=== PATIENT | female | born 1960 | race American Indian/Alaskan Native ===

== ENCOUNTER 2018-06-16 07:06 | Outpatient (CLI) | payer BC ==
[2018-06-16 08:36] LABS: Blood Urea Nitrogen 21 mg/dL (7-17)
--- NOTE | 2018-06-16 15:42 | Cat Scan Report ---
FINAL REPORT EXAM: CT CHEST W CON HISTORY: WEIGHT LOSS TECHNIQUE: Standard enhanced CT of the chest at 2.5 mm axial increments. Coronal and sagittal recons truction was also obtained. Contrast: 100 ml Omnipaque 350 given IV PRIORS: None. FINDINGS: The lung parenchyma are expanded and clear with no evidence for parenchymal nodules, infiltrates, vas cular congestion, pleural effusion, or pneumothorax. There is no evidence for mediastinal, hilar, or axillary adenopathy. The esophagus is collapsed. Th e trachea is midline. Cardiovascular structures are within normal limits. Cardiac size and aorta are normal. Bony structures show no focal abnormalities. No evidence for bony fracture is seen. IMPRESSION: No acute abnormality identified in the chest. Negative exam.
--- NOTE | 2018-06-16 15:48 | Cat Scan Report ---
FINAL REPORT EXAM: CT ABDOMEN PELVIS W CON HISTORY: WEIGHT LOSS TECHNIQUE: Standard enhanced CT of the abdomen and pelvis. Coronal and sagittal reconstruction was a lso performed. Contrast: 100 mL Omnipaque 350 given IV. Readi-Cat given as oral. PRIORS: None. FINDINGS: Within the abdomen, the liver, spleen, pancreas, gallbladder, adrenal glands, and kidneys are unremar kable. No evidence for retroperitoneal or pelvic lymphadenopathy is seen. The bowel loops have seven l caliber. No soft tissue mass, fluid collection, inflammatory change, or free air is seen within the abdomen or pelvis. The appendix is not visualized. Moderate stool is present throughout the entire c olon. Within the pelvis, the bladder is unremarkable. The uterus is not visualized. No evidence for mass or lymphadenopathy is seen in the pelvis. Bony structures show no focal abnormalities. There is a remote unfused fracture involving the distal tip of the posterior spinous process of T11. Facet joint degenerative changes bilaterally at L4 throu gh S1 are noted. IMPRESSION: No acute intra-abdominal process noted.
== END 2018-06-16 07:07 | disposition home or self-care (01) ==
LOC: CT 07:06
PROVIDERS: ATTEND Family Medicine
DX: R63.4 Abnormal weight loss (principal)
CPT/HCPCS: 36415; 71260; 74177; 82565; 84520; Q9967

== ENCOUNTER 2019-06-03 19:47 | Emergency (ER) | payer BC ==
[2019-06-03 20:17] VITALS: BP 167/89
[2019-06-03] MEDS: SODIUM CHLORIDE 0.9% IRR 500 ML BOTTLE IR ONE (21:34)
[2019-06-03] MEDS ORDERED: SODIUM CHLORIDE IRRI 500 ML 500 ML IR ONE (21:34)
[2019-06-03] MEDS: IBUPROFEN 600 MG TAB PO ONE (21:53)
[2019-06-03] MEDS: LIDOCAINE-MPF (1%) 10 MG/1 ML VIAL 5 ML INFILTRATI ONE (21:53)
[2019-06-03] MEDS: TETANUS,DIPH,PERTUSS(ACELL) VACCINE 0.5 ML SYRINGE IM ONE (21:53)
--- NOTE | 2019-06-03 22:58 | Emergency Department Report ---
- General Chief Complaint: Wound/Laceration Stated Complaint: LEFT PINKY FINGER LACERATION Source: patient Mode of arrival: Ambulatory Limitations: No Limitations - History of Present Illness Initial Comments: Patient is a 58-year-old -[place]ong[place] female with a history of hypertension and jss-wewgbob-ltuuyczdn diabetes who presents to the ED with complaint of acute onset persistent painful bleeding left small finger laceration after she accidentally cut her left small finger on the palmar side while cutting a coconut 2 hours ago. Patient denies numbness or tingling or weakness of left small finger, dizziness, nausea, vomiting, syncope, chest pain or shortness of breath. Patient states that she is not up-to-date with her tetanus vaccinations. -: Sudden, hour(s) (2) Location: other (left small finger laceration) Extremity Location: Left: Hand (left small finger) Place: home Patient Tetanus UTD: No (Given during this visit) Context: accidental (left small finger laceration) Associated Symptoms: pain. denies: loss of feeling/numbness, suspect foreign body present, unable to move injured part, weakness followed by dizziness, nausea/vomiting, fever - Related Data Previous Rx's Medication Instructions Recorded Last Taken Type Acetaminophen/Codeine [Tylenol 1 tab PO Q6H PRN #10 tab 06/03/19 Unknown Rx /Codeine # 3 tab] Ibuprofen [Motrin] 600 mg PO Q8H PRN #24 tablet 06/03/19 Unknown Rx cephALEXin [Keflex] 500 mg PO Q6HR #40 capsule 06/03/19 Unknown Rx Allergies Allergy/AdvReac Type Severity Reaction Status Date / Time No Known Allergies Allergy Unverified 04/05/15 11:03 ED Review of Systems ROS: Stated complaint: LEFT PINKY FINGER LACERATION Other details as noted in HPI Constitutional: denies: chills, fever Eyes: denies: eye pain, eye discharge, vision change ENT: denies: ear pain, throat pain Respiratory: denies: cough, shortness of breath, wheezing Cardiovascular: denies: chest pain, palpitations Endocrine: no symptoms reported Gastrointestinal: denies: abdominal pain, nausea, diarrhea Genitourinary: denies: urgency, dysuria, discharge Musculoskeletal: arthralgia (Left small finger pain due to a bleeding laceration), myalgia. denies: back pain, joint swelling Skin: denies: rash, lesions Neurological: denies: headache, weakness, paresthesias Psychiatric: denies: anxiety, depression Hematological/Lymphatic: denies: easy bleeding, easy bruising ED Past Medical Hx - Past Medical History Previous Medical History?: Yes Hx Hypertension: Yes Hx Diabetes: Yes - Surgical History Past Surgical History?: Yes Hx Appendectomy: Yes Additional Surgical History: HYSTERECTOMY, CATARACT BILATERALLY - Social History Smoking Status: Never Smoker - Medications Home Medications: Home Medications Medication Instructions Recorded Confirmed Last Taken Type Acetaminophen/Codeine [Tylenol 1 tab PO Q6H PRN #10 tab 06/03/19 Unknown Rx /Codeine # 3 tab] Ibuprofen [Motrin] 600 mg PO Q8H PRN #24 tablet 06/03/19 Unknown Rx cephALEXin [Keflex] 500 mg PO Q6HR #40 capsule 06/03/19 Unknown Rx ED Physical Exam - General Limitations: No Limitations General appearance: alert, in no apparent distress - Head Head exam: Present: atraumatic, normocephalic, normal inspection - Eye Eye exam: Present: normal appearance, PERRL, EOMI Pupils: Present: normal accommodation - ENT ENT exam: Present: normal exam, normal orophraynx, mucous membranes moist, TM's normal bilaterally, normal external ear exam - Neck Neck exam: Present: normal inspection, full ROM - Respiratory Respiratory exam: Present: normal lung sounds bilaterally. Absent: respiratory distress, wheezes, rales, stridor, chest wall tenderness, accessory muscle use, decreased breath sounds - Cardiovascular Cardiovascular Exam: Present: regular rate, normal rhythm, normal heart sounds. Absent: systolic murmur, diastolic murmur, rubs, gallop - GI/Abdominal GI/Abdominal exam: Present: soft, normal bowel sounds. Absent: tenderness, hyperactive bowel sounds - Extremities Exam Extremities exam: Present: normal inspection, full ROM, tenderness (Palpable left fifth finger tenderness due to a bleeding 3 cm laceration on the palmar side), normal capillary refill - Back Exam Back exam: Present: normal inspection, full ROM. Absent: tenderness, CVA tenderness (R), CVA tenderness (L), muscle spasm, paraspinal tenderness - Neurological Exam Neurological exam: Present: alert, oriented X3, CN II-XII intact, normal gait, reflexes normal - Psychiatric Psychiatric exam: Present: normal affect, normal mood - Skin Skin exam: Present: warm, dry, intact, normal color, other (Bleeding left fifth finger 3 cm laceration on the palmar side). Absent: rash ED Course Vital Signs 06/03/19 20:09 Temperature 122.0 F H Pulse Rate 73 Respiratory 14 Rate Blood Pressure 167/89 O2 Sat by Pulse 98 Oximetry - Laceration /Wound Repair Left Palm Finger Wound Location: upper extremity (left 5th finger laceration) Wound Length (cm): 3 Wound's Depth, Shape: superficial, linear Wound Explored: contaminated Irrigated w/ Saline (ccs): 50 Betadine Prep?: Yes Anesthesia: 1% Lidocaine Volume Anesthetic (ccs): 5 Wound Debrided: extensive Wound Repaired With: sutures Suture Size/Type: 4:0, proline Number of Sutures: 6 Layer Closure?: No Sterile Dressing Applied?: Yes Progress: Patient tolerated the procedure well, and the wound was cleaned thoroughly and dressed appropriately after suturing. Patient was advised return to the ED immediately if the pain, swelling and redness develops on the wound or if she developed persistent fever, nausea and vomiting and worsening pain. Patient was otherwise advised to return to the ED in 12 to 14 days for suture removal. Patient was otherwise advised to follow-up with her primary care physician in 7 to 10 days for reevaluation. ED Medical Decision Making - Medical Decision Making This is a 58-year-old female with a history of hypertension and mhi-ygnuyxr-frkzcrkqx diabetes who presented to the ED with bleeding left small finger laceration after she accidentally cut her left small finger when cutting a coconut. In the ED, patient is alert and oriented x3 and is not in any distress but appears to be in pain. Patient was treated for pain in the ED and also given tetanus booster vaccination. The left small finger laceration was cleaned thoroughly and sutured per protocol and the patient tolerated the procedure well. The wound was cleaned and dressed appropriately and the patient discharged home on prophylactic antibiotics and pain medications. Patient was advised to return to the ED immediately if symptoms get worse. Patient was also advised to return to the ED or follow-up with her primary care physician in 12 to 14 days for suture removal. - Differential Diagnosis Laceration; puncture wound; finger injury Critical care attestation.: If time is entered above; I have spent that time in minutes in the direct care of this critically ill patient, excluding procedure time. ED Disposition Clinical Impression: Laceration of left index finger w/o foreign body w/o damage to nail Qualifiers: Encounter type: initial encounter Qualified Code(s): S61.211A - Laceration without foreign body of left index finger without damage to nail, initial encounter Disposition: DC- TO HOME OR SELFCARE Is pt being admited?: No Does the pt Need Aspirin: No Condition: Stable Instructions: Laceration (ED), Suture Care (ED), Finger Laceration (ED) Additional Instructions: Take medications with food, drink plenty fluids and follow-up with your primary care physician in 5 to 7 days for reevaluation. Return to the ED immediately if symptoms get worse. Otherwise follow-up with your primary care physician or return to the ED in 12 to 14 days for suture removal. Prescriptions: cephALEXin [Keflex] 500 mg PO Q6HR #40 capsule Ibuprofen [Motrin] 600 mg PO Q8H PRN #24 tablet PRN Reason: Pain Acetaminophen/Codeine [Tylenol /Codeine # 3 tab] 1 tab PO Q6H PRN #10 tab PRN Reason: Pain , Severe (7-10) Referrals: ALEX HAMILTON MD [Primary Care Provider] - 3-5 Days Forms: Work/School Release Form(ED) Time of Disposition: 22:56 Print Language: CHINESE
== END 2019-06-03 23:00 | disposition home or self-care (01) ==
LOC: ED 19:47
DX: S61.211A Laceration without foreign body of left index finger without damage to nail, initial encounter (principal); I10 Essential (primary) hypertension; E11.9 Type 2 diabetes mellitus without complications; Z98.890 Other specified postprocedural states; Z90.710 Acquired absence of both cervix and uterus; Z90.49 Acquired absence of other specified parts of digestive tract; Z79.1 Long term (current) use of non-steroidal anti-inflammatories (NSAID); Z79.899 Other long term (current) drug therapy; W45.8XXA Other foreign body or object entering through skin, initial encounter; Y93.89 Activity, other specified; Y92.098 Other place in other non-institutional residence as the place of occurrence of the external cause; Y99.8 Other external cause status
CPT/HCPCS: 90471; 90715

== ENCOUNTER 2020-02-09 09:18 | Outpatient (CLI) | payer BC ==
--- NOTE | 2020-02-09 11:14 | Vascular Lab Report ---
"DUPLEX DOPPLER ULTRASOUND CAROTID, BILATERAL INDICATION: Right carotid bruit. History of diabetes, hypertension and hyperlipidemia. COMPARISON: None available. FINDINGS: RIGHT CAROTID: No significant atherosclerotic plaque. CCA velocity: 75.8 cm/sec. ICA peak systolic velocity: 79.7 cm/sec. ICA/CCA PSV Ratio: 1.05. Right Vertebral Artery: Antegrade flow. LEFT CAROTID: No significant atherosclerotic plaque. CCA velocity: 74.1 cm/sec. ICA peak systolic velocity: 106.0 cm/sec. ICA/CCA PSV Ratio: 1.4. Left Vertebral Artery: Antegrade flow. IMPRESSION: 1. Right Internal Carotid Artery: Normal. 2. Left Internal Carotid Artery: Normal. Velocity criteria are extrapolated from diameter data as defined by the Society of Radiologists in Ul trasound Consensus Conference, Radiology 2003; 229;340-346. Degree of || ICA PSV || Plaque || ICA/CCA Stenosis (%) || (cm/sec) || estimate (%) || PSV Ratio - Normal...............<125..............None.................<2.0 - <50....................<125..............<50....................<2.0 - 50-69................125-230.........>50....................2.0-4.0 - >70 but <100....>230..............>50....................>4.0 - Near...................High, low, .....visible................variable occlusion or none - Total...................None.............visible;................N/A occlusion no lumen Signer Name: Josh Pedroza MD Signed: 02/09/2020 11:09 AM Workstation Name: [id number]"
== END 2020-02-09 09:19 | disposition home or self-care (01) ==
LOC: ECHO 09:18
DX: R09.89 Other specified symptoms and signs involving the circulatory and respiratory systems (principal); I10 Essential (primary) hypertension
CPT/HCPCS: 93306; 93880

== ENCOUNTER 2020-11-17 09:18 | Outpatient (CLI) | payer OTHER ==
--- NOTE | 2020-11-17 10:38 | Ultrasound Report ---
ULTRASOUND ABDOMEN, COMPLETE INDICATION: ABDOMINAL PAIN, RIGHT LOWER QUADRANT. COMPARISON: No relevant prior imaging study available. FINDINGS: Pancreas: No significant abnormality. Abdominal Aorta: No significant abnormality. IVC: No significant abnormality. Liver: The liver measures obtained cm in length. No significant abnormality. Normal hepatopedal bloo d flow in the main portal vein. Gallbladder: No significant abnormality. Bile ducts: No significant abnormality. Common bile duct measures 3 mm. Kidneys: Right: 10.7 cm in length. No significant abnormality. Left: 9.9 cm in length. No signifi cant abnormality. Spleen: No significant abnormality. Free fluid: None. Additional Findings: None. IMPRESSION: No sonographic abnormality of the abdomen. Signer Name: Kaden Gonzalez Jr, MD Signed: 11/17/2020 10:34 AM Workstation Name: [id number]
== END 2020-11-17 09:19 | disposition home or self-care (01) ==
LOC: US 09:18
PROVIDERS: ATTEND Internal Medicine
DX: R10.31 Right lower quadrant pain (principal)
CPT/HCPCS: 76700

== ENCOUNTER 2021-07-24 14:08 | Outpatient (CLI) | payer BC ==
--- NOTE | 2021-07-26 09:02 | Mammography Report ---
DIGITAL SCREENING MAMMOGRAM WITH CAD, 07/24/2021 CLINICAL INFORMATION / INDICATION: Routine screening mammography. TECHNIQUE: Digital bilateral 2D mammography was obtained in the craniocaudal and mediolateral obliqu e projections. This examination was interpreted with the benefit of Computer-Aided Detection analysis . COMPARISON: 06/05/2018, 08/31/2014 FINDINGS: Breast Density: The breasts are heterogeneously dense, which may obscure small masses. No dominant mass, suspicious calcifications, or architectural distortion in either breast. There has been no significant interval change. IMPRESSION: No mammographic evidence of malignancy. Follow up recommendation: Routine yearly BI-RADS Category 1: NEGATIVE A "normal" or negative report should not discourage follow up or biopsy of a clinically significant f inding. A written summary of these findings will be mailed to the patient. The patient will be entered into a mammography reporting system which will generate a reminder letter for the patient's next appointmen t at the appropriate interval. The [employer] recommends yearly mammograms starting at age 40 and continuing as l anna as a woman is in good health. Breast MRI is recommended for women with an approximate 20-25% or greater lifetime risk of breast cancer, including women with a strong family history of breast or ova raymond cancer or who have been treated for Hodgkin's disease. Signer Name: Lian Jeffery MD Signed: 07/26/2021 8:58 AM Workstation Name: [id number]
== END 2021-07-24 14:09 | disposition home or self-care (01) ==
LOC: MAMMO 14:08
PROVIDERS: ATTEND Internal Medicine
DX: Z12.31 Encounter for screening mammogram for malignant neoplasm of breast (principal)
CPT/HCPCS: 77067

== ENCOUNTER 2021-11-10 09:56 | Outpatient (CLI) | payer BC ==
--- NOTE | 2021-11-10 12:21 | Mammography Report ---
DEXA BONE DENSITY SCAN INDICATION / CLINICAL INFORMATION: Z13.820 OSTEOPOROSIS. 61 years Female COMPARISON: None available. LUMBAR SPINE, L1-L4: - Bone mineral density (BMD) = 0.824 g/cm2. - T-score = -2.0 - Change (%) since most recent prior (if available): None available. LEFT HIP, NECK : - Bone mineral density (BMD) = 0.709 g/cm2. - T-score = -1.3 - Change (%) since most recent prior (if available): None available. IMPRESSION: 1. WHO Classification: Osteopenia. Fracture Risk: Increased. 2. 10-Year Fracture Risk (FRAX) = Major Osteoporotic 3.5% / Hip: 0.3% FRAX generally not reported for patients with normal or osteoporotic BMD, in kts-zvbkrpm-obnryjx bryce ents younger than age 50, or in patients undergoing pharmacotherapy BMD Reporting Guidelines (ISCD, 2015) BMD Reporting in Postmenopausal Women and in Men Age 50 and Older - T-scores are preferred. - The WHO densitometric classification is applicable. BMD Reporting in Females Prior to Menopause and in Males Younger Than Age 50 - Z-scores, not T-scores, are preferred. This is particularly important in children. - A Z-score of -2.0 or lower is defined as below the expected range for age, and a Z-score above -2.0 is within the expected range for age. - Osteoporosis cannot be diagnosed in men under age 50 on the basis of BMD alone. - The WHO diagnostic criteria may be applied to women in the menopausal transition. http://www.iscd.org/official-positions/6685-psen-angpqoci-positions-adult/ Signer Name: Iraj Esqueda MD Signed: 11/10/2021 12:16 PM Workstation Name: [id number]
== END 2021-11-10 09:57 | disposition home or self-care (01) ==
LOC: MAMMO 09:56
PROVIDERS: ATTEND Internal Medicine
DX: M85.88 Other specified disorders of bone density and structure, other site (principal)
CPT/HCPCS: 77080